=== PATIENT | male | born 1950 | race African-American/Black ===

== ENCOUNTER 2017-04-24 20:30 | Outpatient (CLI) | payer MEDICARE, OTHER | END 2017-04-24 20:31 | disposition home or self-care (01) | LOC: SLEEPLAB 20:30 | PROVIDERS: ATTEND Internal Medicine | DX: G47.33 Obstructive sleep apnea (adult) (pediatric) (principal); E66.9 Obesity, unspecified; R53.83 Other fatigue; R51 Headache; G45.9 Transient cerebral ischemic attack, unspecified; I10 Essential (primary) hypertension; R06.83 Snoring | CPT/HCPCS: 95811 ==